=== PATIENT | male | born 1935 | race Hispanic/Latino ===

== ENCOUNTER 2017-08-05 14:07 | Emergency (ER) | payer MEDICARE, OTHER ==
[2017-08-05 14:26] VITALS: BP 163/85
[2017-08-05 15:10] LABS: Basophils % (Auto) 0.8 % (0.0-1.8); Eosinophils % (Auto) 2.7 % (0.0-4.3); Hematocrit 39.3 % (35.5-45.6); Hemoglobin 13.3 gm/dl (11.8-15.2); Mean Corpuscular HGB Conc 34 % (32-34); Mean Corpuscular Hemoglobin 30 pg (28-32); Mean Corpuscular Volume 90 fl (84-94); Platelet Count 277 K/mm3 (140-440); Red Blood Count 4.37 M/mm3 (3.65-5.03); Red Cell Distribution Width 14.5 % (13.2-15.2); White Blood Count 8.9 K/mm3 (4.5-11.0)
[2017-08-05 15:21] LABS: INR 1.47 (0.87-1.13)
[2017-08-05 15:22] LABS: Partial Thromboplastin Time 40.8 Sec. (24.2-36.6)
[2017-08-05 15:38] LABS: BUN/Creatinine Ratio 11; Blood Urea Nitrogen 13 mg/dL (9-20); Calcium 9.4 mg/dL (8.4-10.2); Carbon Dioxide 24 mmol/L (22-30); Glucose 147 mg/dL (75-100); Potassium 5.6 mmol/L (3.6-5.0); Sodium 138 mmol/L (137-145)
[2017-08-05 15:39] LABS: Anion Gap 21 mmol/L
== END 2017-08-05 19:00 | disposition left against medical advice (07) ==
LOC: ED 14:07
DX: R07.89 Other chest pain (principal); Z53.21 Procedure and treatment not carried out due to patient leaving prior to being seen by health care provider
CPT/HCPCS: 36415; 80048; 84484; 85025; 85610; 85730; 93005; 93010

== ENCOUNTER 2018-02-08 07:03 | Emergency (ER) | payer MEDICARE ==
--- NOTE | 2018-02-08 07:13 | Emergency Department Report ---
HPI - General Time Seen by Provider: 02/08/18 07:06 - [facility] HPI: EMS Triage/ Room 1 The patient is an 82-year-old male presented with a chief complaint of left- sided weakness. Per EMS the patient's last known well time was last night at approximately 21:30. This morning the patient's daughter went to check on him and found him lying on the floor. The patient has left-sided paralysis with left-sided neglect but when you ask him if anything is bothering him he says "no." Location: Central nervous system Duration: [See above] Quality: Weakness, neglect Severity: Severe Modifying factors: [see above] Context: [see above] Mode of transportation: [not driving] ED Past Medical Hx - Past Medical History Hx Heart Attack/AMI: Yes Hx Congestive Heart Failure: Yes Hx Diabetes: Yes Additional medical history: Atrial fib., neuropathy, Parkinson's disease - Family History Family history: no significant - Social History Smoking Status: Unknown if ever smoked ED Review of Systems ROS: Stated complaint: POSSIBLE CVA Other details as noted in HPI Eyes: denies: eye pain ENT: denies: ear pain Cardiovascular: denies: chest pain Gastrointestinal: denies: abdominal pain Genitourinary: denies: dysuria Musculoskeletal: denies: back pain Neurological: weakness Physical Exam - Physical Exam Physical Exam: GENERAL: The patient is well-developed well-nourished male sitting on EMS stretcher not appearing to be in acute distress. [] HEENT: Normocephalic. Atraumatic. Patient will not look left of midline with either eye. Patient able to look up into the right and down into the right. Patient has moist mucous membranes. NECK: Supple. Trachea midline CHEST/LUNGS: There is no respiratory distress noted. HEART/CARDIOVASCULAR: Irregularly irregular. There is no tachycardia. There is no gallop rub or murmur. ABDOMEN: Abdomen is soft, nontender. Patient has normal bowel sounds. There is no abdominal distention. SKIN: There is no rash. There is no diaphoresis. NEURO: The patient is awake, alert, and oriented. The patient is cooperative. Patient has asymmetric smile (drooping on the left), does not close left eye when prompted, and unable to shrug left shoulder. The patient appears to have left-sided neglect. The patient has normal speech MUSCULOSKELETAL: There is no evidence of acute injury. NIHSS= 17 LOC a. Alert= 0 Not alert but arousable to minor stimuli=1 Not alert requires repeated or strong stimuli to move= 2 Responds only reflex motor or unresponsive=3 b. asks month and age answers both correctly= 0 answers one correctly= 1 answers neither correctly= 2 Best Gaze normal= 0 abnormal in one or both but forced deviation or total paresis absent= 1 forced deviation or total gaze paresis= 2 Visual no visual loss= 0 partial hemianopia= 1 complete hemianopia= 2 bilateral hemianopia= 3 Facial Palsy normal= 0 minor paralysis= 1 partial paralysis= 2 complete paralysis= 3 Motor Arm no drift= 0 drift before 10 secs but doesnt hit bed= 1 some effort against gravity= 2 no effort against gravity= 3 no movement= 4 Motor leg no drift= 0 drift before 5 secs but doesnt hit bed= 1 drifts to bed before 5 secs= 2 no effort against gravity= 3 no movement= 4 Limb ataxia absent=0 present in one limb= 1 present in two limbs= 2 Sensory normal= 0 mild sensory loss= 1 severe (unaware of being touched)= 2 Best language mild/some loss of fluency= 1 severe= 2 mute= 3 Dysarthria normal= 0 slurs some words= 1 severe/unintelligible= 2 Extinction and Inattention no abnormality= 0 visual, tactile, auditory or personal inattention= 1 profound (doesnt recognize own hand or orients to only one side= 2 ED Course - Reevaluation(s) Reevaluation #1: 02/08/18 07:55 Patient has become obtunded and does not respond to sternal rub. Decision to intubate using RSI and lidocaine was made - Consultations Consultation #1: 02/08/18 07:43 [facility] transfer line paged 02/08/18 08:08 Case discussed with [facility] neurosurgeon Dr. Frazier. Recommends administering PCC if available. Will check bed status and call back 02/08/18 08:10 Requested [facility] (PCC) dosing from the pharmacist 02/08/18 08:14 Bed becoming available. Will call back when it is ready but will accept patient in transfer. This PCC is available do not need to give FFP. - Intubation Sedative: Etomidate Mg Given: 20 Paralytic: Succinylcholine Mg Given: 100 Laryngoscope: Jim Size: 3 ET Tube Size: 8 Tube Secured Depth (cm): 24 Tube Secured Location: lips Tube Placement Confirmation: visualized tube passing t, equal breath sounds bilat, no breath sounds over epi Patient Tolerated Procedure: well Intubation Complications: other (patient vomited just prior to intubation) ED Medical Decision Making - Lab Data Result diagrams: 02/08/18 07:21 02/08/18 07:21 Laboratory Tests 02/08/18 02/08/18 02/08/18 07:21 07:21 07:21 WBC 10.8 RBC 4.68 Hgb 13.6 Hct 41.4 MCV 88 MCH 29 MCHC 33 RDW 14.8 Plt Count 380 Lymph % (Auto) 21.7 Luna % (Auto) 7.2 Eos % (Auto) 3.2 Baso % (Auto) 1.1 Lymph # 2.3 Luna # 0.8 Eos # 0.3 Baso # 0.1 Seg Neutrophils % 66.8 Seg Neutrophils # 7.2 PT 37.3 H INR 3.46 H APTT 48.5 H Thrombin Time 17.5 Sodium 133 L Potassium 4.1 Chloride 98.7 Carbon Dioxide 24 Anion Gap 14 BUN 14 Creatinine 0.9 Estimated GFR > 60 BUN/Creatinine Ratio 16 Glucose 137 H Calcium 9.3 Total Creatine Kinase 253 H CK-MB (CK-2) 2.4 CK-MB (CK-2) Rel Index 0.9 Troponin T < 0.010 - EKG Data -: EKG Interpreted by Me Rate: normal - EKG Data When compared to previous EKG there are: previous EKG unavailable Interpretation: other (atrial fibrillation at 82 bpm) - Radiology Data Radiology results: report reviewed (CT head, chest x-ray), image reviewed (CT head, chest x-ray) interpreted by me: Chest [id number] position of ET tube. No pneumothorax. Left lower lobe atelectasis CT head (read by radiologist)- right parietal hemorrhage measuring 8 cm in greatest diameter. Small amount of mass effect with approximately 5 mm of right -to-left midline shift - Differential Diagnosis CVA Critical Care Time: Yes Critical care time in (mins) excluding proc time.: 30 Critical care attestation.: If time is entered above; I have spent that time in minutes in the direct care of this critically ill patient, excluding procedure time. ED Disposition Clinical Impression: Intracranial hemorrhage, Altered mental status, Hypertensive emergency, Coagulopathy Disposition: DC/TX-70 ANOTHER TYPE HLTHCARE Is pt being admited?: No Does the pt Need Aspirin: No Condition: Serious Instructions: Hypertension (ED) Referrals: MARIELLA MARTIN [Primary Care Provider] - 3-5 Days Time of Disposition: 08:25 (awaiting transport)
--- NOTE | 2018-02-08 07:35 | Cat Scan Report ---
CT HEAD WITHOUT CONTRAST: HISTORY: Left hemiparesis, neglect. TECHNIQUE: Sequential 2.5mm CT images. COMPARISON: none. FINDINGS: Cerebral Parenchyma: There is a large acute hemorrhage in the right parietal lobe measuring up to 8.0 x 4.9 cm in axial plane. There is moderate surrounding edema and mass effect on the right lateral ventricle. Right to left midline shift measures 5 mm at the level of the frontal horns. There is mild diffuse volume loss and mild chronic white matter changes. No large area of acute ischemia is appreciated on noncontrast CT. No extra-axial fluid collection. Cerebellum: Within normal limits. Brainstem: Within normal limits. Ventricles: Normal. Sella: Normal. Extra-axial spaces: Normal. Basal Cisterns: Normal. Calvarium: Normal. Sinuses: Normal. Mastoid Air Cells: Normal. Visualized Orbits: Normal. IMPRESSION: Large right parietal acute hemorrhage as described. These findings were discussed with Dr. Squires in the emergency department at 0723 hours.
[2018-02-08] MEDS ORDERED: XYLOCAINE CARDIAC IV ONE (07:50)
[2018-02-08] MEDS ORDERED: AMIDATE IV ONE (07:50)
[2018-02-08] MEDS ORDERED: QUELICIN ONE (07:50)
[2018-02-08 07:51] LABS: Basophils # (Auto) 0.1 K/mm3 (0.0-0.1); Basophils % (Auto) 1.1 % (0.0-1.8); Eosinophils # (Auto) 0.3 K/mm3 (0.0-0.4); Eosinophils % (Auto) 3.2 % (0.0-4.3); Hematocrit 41.4 % (35.5-45.6); Hemoglobin 13.6 gm/dl (11.8-15.2); Lymphocytes # (Auto) 2.3 K/mm3 (1.2-5.4); Lymphocytes % (Auto) 21.7 % (13.4-35.0); Mean Corpuscular HGB Conc 33 % (32-34); Mean Corpuscular Hemoglobin 29 pg (28-32); Mean Corpuscular Volume 88 fl (84-94); Monocytes # (Auto) 0.8 K/mm3 (0.0-0.8); Monocytes % (Auto) 7.2 % (0.0-7.3); Platelet Count 380 K/mm3 (140-440); Red Blood Count 4.68 M/mm3 (3.65-5.03); Red Cell Distribution Width 14.8 % (13.2-15.2)
[2018-02-08 07:53] LABS: INR 3.46 (0.87-1.13)
[2018-02-08 07:54] LABS: Creatine Kinase MB 2.4 ng/mL (0.0-4.0); Partial Thromboplastin Time 48.5 Sec. (24.2-36.6); Thrombin Time 17.5 Sec. (15.1-19.6)
[2018-02-08 07:56] LABS: BUN/Creatinine Ratio 16; Blood Urea Nitrogen 14 mg/dL (9-20); Calcium 9.3 mg/dL (8.4-10.2); Hemolysis Index 17
[2018-02-08] MEDS ORDERED: ZOFRAN IV ONE (07:56)
[2018-02-08] MEDS ORDERED: KEPPRA 1,000 MG/NS 0.75% 100ML 1,000 MG/100 ML BAG IV ONE (07:56)
[2018-02-08] MEDS ORDERED: NACL 0.9% 500 ML 500 ML IV ONE (07:57)
[2018-02-08] MEDS ORDERED: VITAMIN K (ADULT ONLY) SUB-Q ONE (07:59)
[2018-02-08] MEDS ORDERED: CARDENE 50 MG in NACL 0.9% 250ML 230 ML IV SCH (08:00)
[2018-02-08] MEDS ORDERED: ARTIFICIAL TEARS OPHTH OINT OU PRN (08:21)
[2018-02-08] MEDS ORDERED: VASELINE LIP THERAPY TP PRN (08:21)
[2018-02-08] MEDS ORDERED: NORMODYNE IV ONE (08:26)
--- NOTE | 2018-02-08 08:33 | XRay Report ---
AP CHEST: HISTORY: Endotracheal tube placement The endotracheal tube terminates 4 cm superior to the tere. A nasogastric tube has been inserted which is followed to the stomach. AP view of the chest demonstrates a normal mediastinal and cardiac contour with clear lungs and normal bony and soft tissue structures. IMPRESSION: Unremarkable AP chest. Adequate placement of lines and tubes.
[2018-02-08] MEDS ORDERED: NACL 0.9% 500 ML IV SCH (09:00)
[2018-02-08] MEDS ORDERED: KCENTRA (1,000 U) VIAL IV ONE (09:00)
[2018-02-08] MEDS ORDERED: MIDAZOLAM 100 MG in NACL 0.9% 80 ML IV SCH (09:00)
[2018-02-08 09:20] VITALS: BP 126/64
== END 2018-02-08 09:36 | disposition other institution (70) ==
LOC: ED 07:03
DX: I62.9 Nontraumatic intracranial hemorrhage, unspecified (principal); I10 Essential (primary) hypertension; D68.9 Coagulation defect, unspecified; E11.40 Type 2 diabetes mellitus with diabetic neuropathy, unspecified; G20 Parkinson's disease; I48.91 Unspecified atrial fibrillation
CPT/HCPCS: 31500; 36415; 51702; 70450; 71045; 80048; 82550; 82553; 82803; 84484; 85025; 85610; 85670; 85730; 86900; 86901; 93005; 93010; 96365; 96367; 96372; 96375; 99291; J0330; J2001; J2250; J7050; J7195; 94002